=== PATIENT | male | born 1980 | race Caucasian/White ===

== ENCOUNTER 2021-12-17 08:49 | Emergency (ER) | payer OTHER, SELFPAY ==
--- NOTE | ~2021-12-17 | XR_ITS ---
EXAMINATION: XR FINGER, RIGHT CLINICAL INFORMATION: Index finger injury with saw COMPARISON: None TECHNIQUE: 3 views of the right index finger. XR/XR finger RT min 2V FINDINGS/IMPRESSION: There is fragmented comminuted fracture involving the cortical surface of the distal phalanx of the index finger on its ventral surface with associated soft tissue swelling, presumably from the saw injury. No other fractures are seen.
[2021-12-17 09:11] VITALS: BP 142/101; PULSE 99; RESP 16; TEMP 36.8; O2SAT 98; BMI 28.8
--- NOTE | 2021-12-17 09:13 | ED.WOUNDLAC ---
HPI - Wound/Laceration General Chief Complaint: Wound/Laceration Stated Complaint: finger lac Time Seen by Provider: 12/17/21 09:04 Source: patient Mode of arrival: ambulatory Limitations: no limitations History of Present Illness HPI narrative: 41 year old male presents to the ER with a laceration to the tip of his right index finger that he sustained last night with a table saw. He states he immediately pulled finger way and there was no amputation. He has a small 1 cm laceration at the tip of the finger with irregular borders that has been wheezing. He cleaned it out last night and applied a dressing. This morning he went to work and was encouraged come to the emergency room for evaluation because it was still oozing a little bit. He reports numbness of the fingertips, he is able to fully bend and extend the finger. He is right-hand dominant. He is not sure when his last tetanus shot was. Onset (ago): day(s) (1) Extremity Location: right: hand (Index finger) Place: home Patient tetanus UTD: No Context: accidental Associated symptoms: pain and loss of feeling/numbness Treatments prior to arrival: bandage Related Data Previous Rx's Medication Instructions Recorded cephalexin 500 mg capsule 500 mg PO Q6H 7 Days #28 cap 12/17/21 Allergies Allergy/AdvReac Type Severity Reaction Status Date / Time No Known Drug Allergies Allergy Unknown NONE Unverified 05/22/20 19:00 [NO KNOWN DRUG ALLERGIES] Review of Systems Review of Systems: Constitutional: No Fever, No Chills Cardiovascular: No Chest Pain, No SOB Gastrointestinal: No Nausea, No Vomiting Musculoskeletal: + joint pain, No Myalgias Skin: + Skin Lesions, No rash Neuro: No Weakness, + Numbness Heme/Lymph: No Bruising, No Lymphadenopathy, +Bleeding PMFSH Past Medical History Surgical History (Updated 12/17/21 @ 09:14 by Maria D Anna) Hx of cholecystectomy Social History Social History Advance Directives: No Physical Exam Vital Signs: Vital Signs: Last Vital Signs Temp 98.3 F 12/17/21 09:11 Pulse 99 12/17/21 09:11 Resp 16 12/17/21 09:11 BP 131/94 H 12/17/21 09:17 Pulse Ox 98 12/17/21 09:11 BMI result Body Mass Index 28.8 Appearance: Alert. Oriented X3. No acute distress. HEENT: normal inspection CVS: Normal heart rate and rhythm. Pulses normal. Respiratory: No respiratory distress. Skin: Skin warm and dry. Normal skin color. Normal skin turgor. No rashes. Extremities: Right index finger with a 1 cm irregular laceration to the pulp, does not involve the nail. Edges are irregular and approximated with some swelling within the wound, dried blood and scabbing. Decreased sensation of the tip. Able to fully extend and bend at the PIP and D IP joints neurovascularly intact, cap refill less than 3 seconds. Neuro: Oriented X 3. No motor deficit. No sensory deficit. Course Course Course Narrative: 41-year-old male presenting to the ER with a laceration to the distal tip of his right index finger sustained on a table saw last evening. Minor oozing to the area, amenable to suturing to better approximate the edges and achieve hemostasis. Will get x-ray to see if there is any bony involvement. Will give Tdap. Reevaluation(s) Reevaluation #1: X-ray showing comminuted fracture of the distal phalanx. Six sutures were used to close the wound. Will d/c with po abx and referral to hand specialist for evaluation. Wound care and signs of infection were discussed with the patient Stable for d/c home. Procedures Laceration Laceration 1: Site: hand Side (If applicable): right Size (cm): 2 Description: irregular and contaminated Depth: simple, single layer Local Anesthetic: lidocaine 2% Amount of anesthesia used (mL): 1 Pre-repair: wound explored, irrigated extensively and wound margins revised Skin layer closed with: nylon Size (cm): 4-0 Number of sutures: 6 Technique: simple, interrupted Discharge Plan Discharge Clinical Impression: Open fracture of finger of right hand, Finger laceration Patient Disposition: Home, Self-Care Instructions: Finger Fracture (ED), Finger Laceration (ED) Additional Instructions: Your x-ray today showed a fracture of the tip of the finger. Wear the provided splint to allow healing. Sutures were used to close the wound - they will need to be removed in 7 days. See you doctor for this or come back to the ER and we will remove them. Do not get wet for 24 hours, after that you can briefly wash with soap and water then pat dry. Use bacitracin 2x per day. Keep wound clean and covered. Do not submerge in water, no swimming, no dishes. Recommend following up with a hand specialist given this is considered an open fracture. If you develop signs of infection including increased pain, swelling, redness or drainage of pus come back to the ER for further evaluation. Prescriptions: New cephalexin 500 mg capsule 500 mg PO Q6H 7 Days Qty: 28 0RF Referrals: Kamryn Dave MD [Physician] - 1 week (open finger fx, table saw wound) Stand Alone Forms: Work/School Release
[2021-12-17 09:17] VITALS: BP 131/94
[2021-12-17] MEDS: Diphth,Pertus(ACell),Tet Adult 0.5 ML SYRINGE IM (09:36)
[2021-12-17] MEDS: Lidocaine HCl 2 % MPF 5 ML VIAL INFILTRATI (09:37)
== END 2021-12-17 11:04 | disposition home or self-care (01) ==
PROVIDERS: Emergency Provider Emergency Medicine; PCP Internal Medicine
DX: S61.210A Laceration without foreign body of right index finger without damage to nail, initial encounter (principal); S62.630A Displaced fracture of distal phalanx of right index finger, initial encounter for closed fracture; S60.511A Abrasion of right hand, initial encounter; W29.3XXA Contact with powered garden and outdoor hand tools and machinery, initial encounter; Y93.9 Activity, unspecified; Y92.009 Unspecified place in unspecified non-institutional (private) residence as the place of occurrence of the external cause; Y99.9 Unspecified external cause status
CPT/HCPCS: 12001; 73140; 90471; 90715; 99283; 99284

== ENCOUNTER 2022-01-04 07:08 | Outpatient (REF) | payer OTHER, SELFPAY | END 2022-01-04 07:09 | disposition home or self-care (01) | LOC: HO.HOSX 07:08 | PROVIDERS: Visit Provider Physician Assistant | DX: Z13.89 Encounter for screening for other disorder (principal) ==

== ENCOUNTER 2025-02-05 00:19 | Emergency (ER) | payer OTHER, SELFPAY ==
[2025-02-05 00:27] VITALS: BP 171/99; PULSE 88; RESP 16; TEMP 36.6; O2SAT 98; BMI 23.2
[2025-02-05 01:42] LABS: Basophils Percent Auto 0.3 % (0-2); Eosinophils Absolute Auto 0.1 X10*3/uL (0.0-0.4); Eosinophils Percent Auto 1.2 % (0-4); Hematocrit 43.8 % (42.0-52.0); Hemoglobin 15.9 g/dl (14.0-18.0); Imm Gran Abs Auto 0.04 X10*3/uL (0.00-0.03); Imm Gran Pct Auto 0.3 % (0.0-0.4); Lymphocytes Absolute Auto 2.1 X10*3/uL (1.2-4.9); MANUAL DIFF FLAG NO; Mean Corpuscular HGB Conc 36.3 g/dl (31.0-36.0); Mean Corpuscular Hemoglobin 32.1 pg (27.0-33.0); Mean Corpuscular Volume 88.3 fL (80.0-98.0); Mean Platelet Volume 9.8 fL (9.4-12.4); Monocytes Percent Auto 8.2 % (2-11); Neutrophils Absolute Auto 8.9 x10*3/uL (2.0-8.3); Platelet Count 237 X10*3/uL (160-400); Red Blood Count 4.96 X10*6/uL (4.60-5.80); Red Cell Distribution Width 11.9 % (11.0-16.0); White Blood Count 12.1 X10*3/uL (4.8-10.8)
[2025-02-05 01:57] LABS: Alanine Aminotransferase 21 U/L (0-40); Albumin Level 4.5 g/dL (3.5-5.0); Anion Gap 12 (12-20); Aspartate Amino Transferase 23 U/L (5-37); Bilirubin Total 0.5 mg/dL (0.0-1.0); Blood Urea Nitrogen 9 mg/dL (9-16); Calcium 9.7 mg/dL (8.4-10.2); Carbon Dioxide 31 mmol/L (22-29); Chloride 106 mmol/L (96-108); Creatinine Clr Calc Pharmacy 123.4; Estimated Glomerular Filt Rate > 60; Glucose Random 77 mg/dL (60-115); Sodium 144 mmol/L (135-145); Total Protein 7.2 g/dL (6.5-8.0)
[2025-02-05 02:22] LABS: Alkaline Phosphatase 76 U/L (39-117)
[2025-02-05] MEDS: Morphine Sulfate Immed Release 15 MG TABLET PO (02:25)
[2025-02-05] MEDS: Amoxicillin/Potassium Clav 875 MG TABLET PO (02:25)
[2025-02-05 02:29] VITALS: BP 171/99; PULSE 88; RESP 16; TEMP 36.6; O2SAT 98
--- NOTE | 2025-02-05 03:16 | ED.DENTAL ---
HPI - Dental/Oral General Chief complaint: Dental/Oral Stated complaint: dental pain Time Seen by Provider: 02/05/25 02:15 Source: patient Mode of arrival: ambulatory Limitations: no limitations History of Present Illness ED Provider: HPI Narrative: patient with poor dental hygiene with multiple caries tooth comes here for increased swelling and pain in the right upper teeth for last few days got worse yesterday no fever no chills patient is supposed to see dentist for extraction of the teeth Related Data Previous Rx's ?Medication ?Instructions ?Recorded cephalexin 500 mg capsule 500 mg PO Q6H 7 days #28 caps 12/17/21 amoxicillin 875 mg-potassium 1 tab PO BID #20 tabs 02/05/25 clavulanate 125 mg tablet morphine 15 mg immediate release 15 mg PO Q8H PRN pain #15 tabs 02/05/25 tablet Allergies Allergy/AdvReac Type Severity Reaction Status Date / Time No Known Drug Allergies Allergy Unknown NONE Verified 02/05/25 00:28 [NO KNOWN DRUG ALLERGIES] Review of Systems Review of Systems: Yes all other systems are reviewed and are negative [facility] Past Medical History Surgical History Hx of cholecystectomy Social History Social History Advance Directives: No Advance Directives Information Provided: Yes Do you have a plan to hurt others: No Plan Physical Exam Vital Signs: Vital Signs: Last Vital Signs Temp 97.8 F 02/05/25 02:29 Pulse 88 02/05/25 02:29 Resp 16 02/05/25 02:29 BP 171/99 H 02/05/25 02:29 Pulse Ox 98 02/05/25 02:29 O2 Del Method Room Air 02/05/25 02:29 BMI result Body Mass Index 23.2 Appearance: Alert. Oriented X3. in moderate distress Eyes: no pallor or icterus ENT: Pharynx normal Oral Mucosa moist tympanic membrane intact no erythema, poor dental hygiene with multiple caries teeth Neck: Normal inspection. Neck supple. CVS: Normal heart rate and rhythm. Pulses normal. Respiratory: No respiratory distress. Equal air entry bilateral, no wheezing/rales/rhonchi Abd: soft, not tender Skin: Skin warm and dry. Normal skin color. Normal skin turgor. Extremities: No lower extremity edema, no calf tenderness Neuro: Oriented X 3. HEENT: Teeth image: 1. tender tooth 5. And 6 with deep cavities and gum swelling Medications Administered Discontinued Medications Generic Name Dose Route Start Last Admin Trade Name Edouardq PRN Reason Stop Dose Admin Amoxicillin/Clavulanate Potassium 875 mg 02/05/25 02:19 02/05/25 02:25 Amoxicillin/Potassium Clav 875 Mg Tablet PO 02/05/25 02:20 875 mg ONCE ONE Administration Morphine Sulfate 15 mg 02/05/25 02:19 02/05/25 02:25 Morphine Sulfate Immed Release 15 Mg Tablet PO 02/05/25 02:20 15 mg ONCE ONE Administration Medical Decision Making Medical Decision Making MDM Narrative: patient advised to follow with dentist will prescribe Augmentin and pain medication Lab Data 02/05/25 01:26 02/05/25 01:26 Labs: Lab Results 02/05/25 Range/Units 01:26 WBC 12.1 H (4.8-10.8) X10*3/uL RBC 4.96 (4.60-5.80) X10*6/uL Hgb 15.9 (14.0-18.0) g/dl Hct 43.8 (42.0-52.0) % MCV 88.3 (80.0-98.0) fL MCH 32.1 (27.0-33.0) pg MCHC 36.3 H (31.0-36.0) g/dl RDW 11.9 (11.0-16.0) % Plt Count 237 (160-400) X10*3/uL MPV 9.8 (9.4-12.4) fL Immature Gran % (Auto) 0.3 (0.0-0.4) % Neut % (Auto) 73.0 (45-73) % Lymph % (Auto) 17.0 L (20-40) % [place] % (Auto) 8.2 (2-11) % Eos % (Auto) 1.2 (0-4) % Baso % (Auto) 0.3 (0-2) % Lymph # (Auto) 2.1 (1.2-4.9) X10*3/uL [place] # (Auto) 1.0 (0.1-1.2) X10*3/uL Eos # (Auto) 0.1 (0.0-0.4) X10*3/uL Baso # (Auto) 0.0 (0.0-0.2) X10*3/uL Abs Immat Gran (auto) 0.04 H (0.00-0.03) X10*3/uL Absolute Neuts (auto) 8.9 H (2.0-8.3) x10*3/uL Absolute Nucleated RBC 0.000 (0.0-0.012) X10*3/uL Nucleated RBC % (auto) 0.0 (0.0-0.2) /100WBC Sodium 144 (135-145) mmol/L Potassium 5.0 (3.3-5.1) mmol/L Chloride 106 (96-108) mmol/L Carbon Dioxide 31 H (22-29) mmol/L Anion Gap 12 (12-20) BUN 9 (9-16) mg/dL Creatinine 0.88 (0.5-1.4) mg/dL Estim Creat Clear Calc 123.4 Estimated GFR > 60 Random Glucose 77 (60-115) mg/dL Calcium 9.7 (8.4-10.2) mg/dL Total Bilirubin 0.5 (0.0-1.0) mg/dL AST 23 (5-37) U/L ALT 21 (0-40) U/L Alkaline Phosphatase 76 (39-117) U/L Total Protein 7.2 (6.5-8.0) g/dL Albumin 4.5 (3.5-5.0) g/dL Discharge Plan Discharge Clinical Impression: Dental caries Patient Disposition: Home, Self-Care Instructions: Toothache (ED) Additional Instructions: antibiotics and pain med as prescribed follow with your dentist Prescriptions: New morphine 15 mg tablet 15 mg PO Q8H PRN (Reason: pain) Qty: 15 0RF Rx Instructions: Partial Fill upon patient request. amoxicillin-pot clavulanate 875-125 mg tablet 1 tab PO BID Qty: 20 0RF No Action cephalexin 500 mg capsule 500 mg PO Q6H 7 Days Qty: 28 0RF Interventions: ED Discharge Assessment Last Done: 02/05/25 02:29 Discharge Date/Time: 02/05/25 02:29 Print Language: Vincentian
== END 2025-02-05 02:29 | disposition home or self-care (01) ==
PROVIDERS: Emergency Provider Internal Medicine
DX: K02.9 Dental caries, unspecified (principal); K08.89 Other specified disorders of teeth and supporting structures; R46.0 Very low level of personal hygiene
CPT/HCPCS: 36415; 80053; 85025; 99283